=== PATIENT | male | born 1980 | race Two or more races ===

== ENCOUNTER 2019-07-04 20:10 | Inpatient (IN) | payer SELFPAY ==
[~2019-07-04] VITALS: Ht 170.2 cm; Wt 81.4 kg
[2019-07-04 21:14] LABS: Basophils # (auto) 0 uL; Basophils % (auto) 0.4 % (0.0-2.0); Eosinophils # (auto) 0.1 uL; Eosinophils % (auto) 1.3 % (0.0-7.0); Hemoglobin 15.2 g/dL (13.5-17.5); Lymphocytes % (auto) 27.6 % (10.0-50.0); Mean Corpuscular Hemoglobin 29.9 pg (28.0-32.0); Mean Corpuscular Hgb Conc. 34.5 g/dL (32.0-36.0); Mean Corpuscular Volume 86.5 fL (80.0-100.0); Monocytes # (auto) 0.7 uL; Monocytes % (auto) 6.5 % (0.0-12.0); Neutrophils % (auto) 64.2 % (37.0-80.0); Platelet Count (auto) 340 10^3/uL (140-450); Red Blood Cells 5.08 10^6/uL (4.5-5.90); Red Cell Distribution Width 12.8 % (11.8-14.3); White Blood Cell 10.9 10^3/uL (4.4-10.8)
[2019-07-04 21:24] LABS: Potassium 3.5 mmol/L (3.5-5.1)
[2019-07-04 21:32] LABS: Albumin 3.6 g/dL (3.4-5.0); Bilirubin, Total 0.5 mg/dL (0.2-1.0); Calcium 8.7 mg/dL (8.5-10.1); Total Protein 8.8 g/dL (6.4-8.2)
[2019-07-05] MEDS ORDERED: cefTRIAXone 1GM/50ML D5W 50 ML IV ONE (00:30)
[2019-07-05] MEDS ORDERED: ONDANSETRON HCL 4 MG/2 ML VIAL IV PRN (02:30)
[2019-07-05] MEDS ORDERED: ACETAMINOPHEN 325 MG TAB PO PRN (02:30)
[2019-07-05] MEDS ORDERED: MORPHINE SULFATE 4 MG/ML SYR/VIAL IV PRN (02:30)
[2019-07-05] MEDS ORDERED: TEMAZEPAM 15 MG CAP PO PRN (02:30)
[2019-07-05] MEDS ORDERED: HYDROmorphone HCL 2 MG/ML VL IV ONE (02:45)
[2019-07-05] MEDS ORDERED: ONDANSETRON HCL 4 MG/2 ML VIAL IV ONE (02:45)
--- NOTE | 2019-07-05 04:00 | NUR ---
RECEIVED PATIENT FROM ER. NO REPORT RECEIVED FROM ER NURSE. ASSUMING ROLE OF CARE OF PATIENT AT THIS TIME. PATIENT SHOWING NO SIGN OF DISTRESS, SHORTNESS OF BREATH, AND PATIENT DENIES ANY PAIN AT THIS TIME. PATIENT EDUCATED ON PLAN OF CARE FOR THE NIGHT AND PATIENT VERBALIZED UNDERSTANDING. WOUND CARE PHOTOS TAKEN OF LEFT KNEE. BED LOWERED, CALL LIGHT WITHIN REACH AND PATIENT WILL BE ROUNDED ON EVERY HOUR AND NEEDED.
[2019-07-05 04:54] VITALS: BP 122/82
[2019-07-05] MEDS: CLINDAMYCIN 600MG IV 50 ML IV SCH ×3 (05:39→22:05)
[2019-07-05 09:00] VITALS: BP 103/64
[2019-07-05] MEDS: NAPROXEN 500 MG TAB PO SCH ×2 (09:24→22:05)
[2019-07-05] MEDS: FAMOTIDINE 20 MG TAB PO SCH ×2 (09:24→22:05)
--- NOTE | 2019-07-05 11:48 | NUR ---
PT SEEN BY DR. DUARTE PER DR. DUARTE HE WILL NOTIFY DR. CHRISTINE FOR THE ORTHOPEDIC CONSULT.
--- NOTE | 2019-07-05 12:46 | NUR ---
DR. DUARTE CALLED PER DR. GERALD CHRISTINE IS OUT OF TOWN, HE ORDERED TO CALL DR. JONATHON DURÁN FOR THE ORTHOPEDIC CONSULT. LABEL PRINTING MACHINIST JESSIKA MADE AWARE INSTRUCTED TO CALL THE CONSULT TO DR. DURÁN.
[2019-07-05 13:00] VITALS: BP 109/67
--- NOTE | 2019-07-05 16:07 | NUR ---
PT SEEN BY DR. DURÁN PT MADE AWARE HE WILL BE SCHEDULED FOR SURGERY OF HIS LEFT KNEE TOMORROW MORNING, PT AGREED AND VERBALIZED UNDERSTANDING.
[2019-07-05 16:42] VITALS: BP 111/63
[2019-07-05 19:00] LABS: Basophils # (auto) 0 uL; Basophils % (auto) 0.5 % (0.0-2.0); Eosinophils # (auto) 0.2 uL; Eosinophils % (auto) 2.9 % (0.0-7.0); Hematocrit 42.8 % (41.0-53.0); Hemoglobin 14.6 g/dL (13.5-17.5); Lymphocytes # (auto) 3.1 uL; Lymphocytes % (auto) 37.9 % (10.0-50.0); Mean Corpuscular Hemoglobin 29.5 pg (28.0-32.0); Mean Corpuscular Hgb Conc. 34.2 g/dL (32.0-36.0); Mean Corpuscular Volume 86.3 fL (80.0-100.0); Monocytes # (auto) 0.6 uL; Monocytes % (auto) 7.3 % (0.0-12.0); Neutrophils # (auto) 4.3 uL; Neutrophils % (auto) 51.4 % (37.0-80.0); Nucleated Red Blood Cells % 0.1 %; Platelet Count (auto) 339 10^3/uL (140-450); Red Blood Cells 4.96 10^6/uL (4.5-5.90); Red Cell Distribution Width 12.5 % (11.8-14.3); White Blood Cell 8.3 10^3/uL (4.4-10.8)
[2019-07-05 19:15] LABS: INR 1.08 (0.9-1.15)
[2019-07-05 19:25] LABS: BUN/Creatinine Ratio 17.5; Calcium 8.7 mg/dL (8.5-10.1); Potassium 3.7 mmol/L (3.5-5.1)
--- NOTE | 2019-07-05 20:00 | NUR ---
Opening Shift Note Assumed care of patient, awake and alert. No S/S of distress/SOB or pain. Instructed on POC and to call for assist PRN, will continue to monitor for changes Q1hr and PRN. bed in low position and call light within reach
[2019-07-05 22:00] VITALS: BP 140/80
--- NOTE | 2019-07-06 02:15 | NUR ---
patient stated he would sign consents down in OR. patient was okay with signing blood transfusion.
--- NOTE | 2019-07-06 02:40 | NUR ---
patient called. upon entering room patient left knee bursitis is found with bright red blood oozing. are was cleaned and abd pad and tape was secured to area.
[2019-07-06 02:45] LABS: Basophils # (auto) 0 uL; Basophils % (auto) 0.3 % (0.0-2.0); Eosinophils # (auto) 0.2 uL; Eosinophils % (auto) 2.5 % (0.0-7.0); Hematocrit 42.1 % (41.0-53.0); Hemoglobin 14.6 g/dL (13.5-17.5); Mean Corpuscular Hemoglobin 29.9 pg (28.0-32.0); Mean Corpuscular Hgb Conc. 34.7 g/dL (32.0-36.0); Monocytes # (auto) 0.6 uL; Neutrophils # (auto) 4.3 uL; Neutrophils % (auto) 53.2 % (37.0-80.0); Nucleated Red Blood Cells % 0.1 %; Platelet Count (auto) 327 10^3/uL (140-450); Red Blood Cells 4.89 10^6/uL (4.5-5.90); Red Cell Distribution Width 12.8 % (11.8-14.3); White Blood Cell 8.1 10^3/uL (4.4-10.8)
--- NOTE | 2019-07-06 02:57 | NUR ---
UA sent down to lab
[2019-07-06 03:05] LABS: Calcium 8.7 mg/dL (8.5-10.1); Potassium 3.9 mmol/L (3.5-5.1)
[2019-07-06 03:07] LABS: BUN/Creatinine Ratio 22.9
[2019-07-06 03:11] LABS: INR 1.12 (0.9-1.15); Partial Thromboplastin Time 31.7 sec (23.64-32.05)
[2019-07-06 03:12] LABS: Urine Bacteria FEW /hpf (None Seen); Urine Blood Negative /uL (Negative); Urine Mucus FEW (None Seen); Urine Specific Gravity 1.018 (1.001-1.035); Urine WBC 2 /hpf (0 - 3)
--- NOTE | 2019-07-06 04:44 | NUR ---
Assisted patient with preop wipes. abd pad applied to left knee area has mild oozing of blood.
[2019-07-06] MEDS: CLINDAMYCIN 600MG IV 50 ML IV SCH ×3 (05:28→21:35)
[2019-07-06 06:00] VITALS: BP 113/68
--- NOTE | 2019-07-06 07:21 | NUR ---
SBAR report given to dayshift rn. patient denies sob or pain.
--- NOTE | 2019-07-06 07:30 | NUR ---
Opening Shift Note Assumed care of patient, awake and alert. No S/S of distress/SOB or pain. Instructed on POC and to call for assist PRN, will continue to monitor for changes Q1hr and PRN.
[2019-07-06] MEDS ORDERED: VANCOMYCIN HCL 1000 MG VL ONE ×2 (07:43→08:31)
[2019-07-06] MEDS ORDERED: ceFAZolin 1GM/50ML 100 ML IV ONE (07:46)
--- NOTE | 2019-07-06 07:50 | NUR ---
Patient taken to pre-op via bed. Report given to BRIJESH Simpson. Surgical checklist, consents in the chart.
[2019-07-06] MEDS ORDERED: MIDAZOLAM HCL 1MG/1ML-2 ML VIAL ONE (07:53)
[2019-07-06] MEDS ORDERED: KETOROLAC TROMETH 60MG/2ML VIAL ONE (07:53)
[2019-07-06] MEDS ORDERED: PROPOFOL 10 MG/ML 20 ML IV ONE (07:53)
[2019-07-06] MEDS ORDERED: METOCLOPRAMIDE HCL 5MG/ml INJ 2ml VIAL ONE (07:53)
[2019-07-06] MEDS ORDERED: LIDOCAINE 2% (LOCAL ANESTH.) PF 5ml SDV ONE (07:53)
[2019-07-06] MEDS ORDERED: ONDANSETRON HCL 4 MG/2 ML VIAL ONE (07:53)
[2019-07-06] MEDS ORDERED: fentaNYL CITRATE 100 MCG/2 ML VL ONE (08:03)
[2019-07-06] MEDS ORDERED: MIDAZOLAM HCL 1MG/1ML-2 ML VIAL IV ONE (08:08)
[2019-07-06] MEDS ORDERED: DexAMETHasone SOD PHOS 10MG/1ML VIAL INJ ONE (08:22)
[2019-07-06] MEDS: ceFAZolin 1GM/50ML 50 ML IV SCH ×4 (09:00→21:56)
[2019-07-06] MEDS ORDERED: HYDROmorphone HCL 2 MG/ML VL IV PRN (09:15)
[2019-07-06] MEDS ORDERED: NALOXONE HCL 0.4 MG/ML VIAL IV PRN (09:15)
[2019-07-06] MEDS ORDERED: ePHEDrine SULFATE 50 MG/ML AMP IV PRN (09:15)
[2019-07-06] MEDS ORDERED: LABETALOL HCL 5 MG/ML 4ML SYRINGE IV PRN (09:15)
[2019-07-06] MEDS ORDERED: METOCLOPRAMIDE HCL 5MG/ml INJ 2ml VIAL IV PRN (09:15)
--- NOTE | 2019-07-06 09:50 | NUR ---
Patient returned to Room 216B. Dressing to left knee dry and intact, jamil wrap in place. Patient has no complaints at this time. Call light in reach. Will continue to monitor. at bedside.
[2019-07-06 10:00] VITALS: BP 132/85
[2019-07-06] MEDS: ENOXAPARIN SOD 40 MG/0.4 ML SYRINGE SC SCH (10:30)
[2019-07-06] MEDS: NAPROXEN 500 MG TAB PO SCH ×2 (10:31→21:36)
[2019-07-06] MEDS: FAMOTIDINE 20 MG TAB PO SCH ×2 (10:31→21:36)
[2019-07-06] MEDS: HYDROcodone-ACET 5/325MG TAB PO PRN ×2 (10:39→15:20)
[2019-07-06] MEDS: LACTATED RINGER'S 1,000 ML IV SCH ×2 (11:00→18:55)
[2019-07-06 13:00] VITALS: BP 128/72
[2019-07-06] MEDS: SODIUM CHLOR 0.9% PF (SALINE LOCK) 10ML VIAL/SYR IV SCH ×2 (14:00→22:12)
[2019-07-06 17:00] VITALS: BP 147/87
--- NOTE | 2019-07-06 20:00 | NUR ---
Opening Shift Note Assumed care of patient, awake and alert. No S/S of distress/SOB or pain. Instructed on POC and to call for assist PRN, will continue to monitor for changes Q1hr and PRN.S/p left knee irrigation and debridement, dressing dry and intact.
[2019-07-06 22:05] VITALS: BP 119/77
[2019-07-07] MEDS: LACTATED RINGER'S 1,000 ML IV SCH ×2 (04:55→14:55)
[2019-07-07 05:25] VITALS: BP 134/73
[2019-07-07] MEDS: SODIUM CHLOR 0.9% PF (SALINE LOCK) 10ML VIAL/SYR IV SCH ×3 (05:37→21:42)
[2019-07-07] MEDS: CLINDAMYCIN 600MG IV 50 ML IV SCH ×3 (05:37→21:41)
--- NOTE | 2019-07-07 07:05 | NUR ---
Report given to Tiara Beauchamp , no complained of pain the whole night, used bedside commode with non weight bearing on the left foot.
[2019-07-07 07:34] LABS: Basophils # (auto) 0 uL; Basophils % (auto) 0.3 % (0.0-2.0); Eosinophils # (auto) 0 uL; Eosinophils % (auto) 0.2 % (0.0-7.0); Hematocrit 41.9 % (41.0-53.0); Hemoglobin 14.3 g/dL (13.5-17.5); Lymphocytes # (auto) 3.2 uL; Lymphocytes % (auto) 27.8 % (10.0-50.0); Mean Corpuscular Hemoglobin 29.4 pg (28.0-32.0); Mean Corpuscular Hgb Conc. 34.1 g/dL (32.0-36.0); Mean Corpuscular Volume 86.3 fL (80.0-100.0); Monocytes # (auto) 0.7 uL; Monocytes % (auto) 5.8 % (0.0-12.0); Neutrophils # (auto) 7.6 uL; Neutrophils % (auto) 65.9 % (37.0-80.0); Platelet Count (auto) 365 10^3/uL (140-450); Red Blood Cells 4.85 10^6/uL (4.5-5.90); Red Cell Distribution Width 12.2 % (11.8-14.3); White Blood Cell 11.5 10^3/uL (4.4-10.8)
[2019-07-07 09:00] VITALS: BP 160/71
--- NOTE | 2019-07-07 09:20 | NUR ---
Dr. Bibi Wall in to see patient as hospitalist.
[2019-07-07] MEDS: HYDROcodone-ACET 5/325MG TAB PO PRN (09:37)
[2019-07-07] MEDS: ENOXAPARIN SOD 40 MG/0.4 ML SYRINGE SC SCH (10:12)
[2019-07-07] MEDS: FAMOTIDINE 20 MG TAB PO SCH ×2 (10:12→21:42)
[2019-07-07] MEDS: NAPROXEN 500 MG TAB PO SCH ×2 (10:12→21:42)
[2019-07-07 13:00] VITALS: BP 135/80
[2019-07-07 16:54] VITALS: BP 131/80
--- NOTE | 2019-07-07 18:47 | NUR ---
Patient OOB ad jelly with crutches. No S/S distress.
--- NOTE | 2019-07-07 20:04 | NUR ---
Opening Shift Note Assumed care of patient, awake and alert. No S/S of distress/SOB or pain. Instructed on POC and to call for assist PRN, will continue to monitor for changes Q1hr and PRN.Dressing in the left knee dry and intact, family at bedside.
[2019-07-07 21:44] VITALS: BP 142/67
--- NOTE | 2019-07-07 22:30 | NUR ---
Dressing changed of the left knee with povidone solution, dry with gauze and covered with gauze and abdominal pad, wrapped with brown jamil bandage, site is clean and sutures is noted no signs of infection noted.
--- NOTE | 2019-07-07 23:00 | NUR ---
IV removal IV DC'd with sterile technique, catheter fully intact. Pressure dressing applied to site. Patient tolerated procedure well.
--- NOTE | 2019-07-07 23:00 | NUR ---
IV insertion IV access obtained, via clean sterile technique by inserting 22 gauge catheter at left forearm after attempt. IV secured properly. No trauma to site. Patient tolerated procedure well.
[2019-07-08] MEDS: LACTATED RINGER'S 1,000 ML IV SCH ×2 (00:26→00:27)
[2019-07-08 05:00] VITALS: BP 114/64
[2019-07-08] MEDS: SODIUM CHLOR 0.9% PF (SALINE LOCK) 10ML VIAL/SYR IV SCH (05:36)
[2019-07-08] MEDS: CLINDAMYCIN 600MG IV 50 ML IV SCH (05:36)
--- NOTE | 2019-07-08 07:22 | NUR ---
Report given to Tiara Lincoln, patient is resting no distress.
[2019-07-08 09:07] VITALS: BP 125/80
[2019-07-08] MEDS: FAMOTIDINE 20 MG TAB PO SCH (11:04)
[2019-07-08] MEDS: NAPROXEN 500 MG TAB PO SCH (11:05)
[2019-07-08] MEDS: ENOXAPARIN SOD 40 MG/0.4 ML SYRINGE SC SCH (11:06)
--- NOTE | 2019-07-08 11:15 | NUR ---
DR. DUARTE SEES PT EXPLAINS PLANS FOR ORAL ANTIBIOTICS TIMES 2 WEEKS THREE TIMES A DAY AND TO F/U WITH DR. DEAN IN TWO WEEKS. PREP TO DC TODAY
[2019-07-08 13:00] VITALS: BP 140/72
[2019-07-08 15:13] VITALS: BP 125/80
[2019-07-08 22:04] VITALS: BP 121/70
== END 2019-07-08 15:45 | disposition home or self-care (01) | DRG 464 ==
LOC: ER 20:12 → OVERFLOW 20:13 → CENTRAL 07-05 04:17
PROVIDERS: ADMIT Nurse Practitioner; ATTEND Family Medicine
PROC: 0JBP0ZZ Excision of Left Lower Leg Subcutaneous Tissue and Fascia, Open Approach (ICD-10-PCS; principal; 2019-07-06 08:08)
DX: M70.52 Other bursitis of knee, left knee (principal); L03.116 Cellulitis of left lower limb; L02.416 Cutaneous abscess of left lower limb; G47.00 Insomnia, unspecified; E66.9 Obesity, unspecified; D72.829 Elevated white blood cell count, unspecified; B95.61 Methicillin susceptible Staphylococcus aureus infection as the cause of diseases classified elsewhere; M70.42 Prepatellar bursitis, left knee; Z72.89 Other problems related to lifestyle; Z79.899 Other long term (current) drug therapy; Z68.28 Body mass index [BMI] 28.0-28.9, adult
CPT/HCPCS: 36415; 71045; 73700; 80048; 80053; 81001; 83605; 84550; 85025; 85610; 85652; 85730; 86141; 86850; 86900; 86901; 87040; 87070; 87075; 87077; 87186; 93005; 96365; 96375; 97116; 97163; 97530; G0378; J0690; J0696; J1100; J1885; J2001; J2250; J2405; J2704; J3490